=== PATIENT | female | born 1995 | race Caucasian/White ===

== ENCOUNTER 2018-09-24 11:53 | Inpatient (IN) | payer OTHER ==
[~2018-09-24] VITALS: Ht 154.9 cm; Wt 61.3 kg
[2018-09-24 12:06] VITALS: Ht 154.9 cm; Wt 61.3 kg
[2018-09-24 12:07] VITALS: BP 108/57
[2018-09-24] MEDS ORDERED: PREN1TAB71 PO (12:08)
--- NOTE | 2018-09-24 12:40 | PN ---
Triage Information Date/Time Reason for visit: Vag spotting / bleeding Weeks of Gestation 23-year-old 1 para 0 at 33 weeks and 3 days of gestation with estimated date of delivery November 09, 2018 Patient presents with chief complaint of vaginal bleeding for 2 days after intercourse Patient reports positive movement, denies any contractions or leaking fluid /Para 1 para 0 Diabetes: none Hypertention: none Objective Vital Signs Date Temp Pulse Resp B/P (MAP) Pulse Ox O2 O2 Flow FiO2 Time Delivery Rate 09/24/18 97.8 108/57 12:07 (74) Heart Rate: 140's Heart Rate Comments heart rate tracing category 1 Contractions: 6-10 Minutes Apart Results/Medications Results 24 hrs Urine Results - 72 Hrs Test 09/24/18 12:15 Urine Color YELLOW (YELLOW) Urine Clarity SLIGHTLY CLOUDY (CLEAR) Urine pH 6.0 (5.0-9.0) Urine Specific [place] 1.020 (1.003-1.030) Urine Ketones NEGATIVE mg/dL (NEGATIVE) Urine Nitrite NEGATIVE mg/dL (NEGATIVE) Urine Bilirubin NEGATIVE mg/dL (NEGATIVE) Urine Urobilinogen NEGATIVE mg/dL (NEGATIVE) Urine Leukocyte Esterase 2+ Rebeca/ul (NEGATIVE) H Urine Microscopic RBC 1 /HPF (0-5) Urine Microscopic WBC 3 /HPF (0-5) Urine Squamous Epithelial Cells FEW /HPF (FEW) Urine Bacteria FEW /HPF (NONE SEEN) A Urine Mucus FEW /HPF (NONE SEEN) A Urine Hemoglobin 2+ mg/dL (NEGATIVE) H Urine Glucose NEGATIVE mg/dL (NEGATIVE) Urine Total Protein NEGATIVE mg/dl (NEGATIVE) Imaging Results PROCEDURE: US OB biophysical profile. Ultrasound cervix CLINICAL INDICATION: decreased movements, bleeding TECHNIQUE: Multiple sonographic images of the pelvis were obtained. In addition, transvaginal images of the cervix were obtained. The images were reviewed on a PACS workstation. COMPARISON: No prior studies are available for comparison. FINDINGS: The cervix measures 2.3 cm in length. There is a single live intrauterine gestation. Cardiac activity is present with 164 beats per minute. There is a vertex presentation. The placenta is anterior. There is no evidence of placental abruption. There is a normal amount of amniotic fluid with an MARCOS = 11.4 cm. Biophysical profile: movement 2/2 tone 2/2. breathing 2/2 MARCOS 2/2 Total 8/8 RPTAT: AA . IMPRESSION: Normal biophysical profile. Cervix measures 2.3 cm in length. .Jasper Singh MD, MD Date Time Electronically viewed and signed by .Jasper Singh MD, on 09/24/2018 13:20 .S/ CC: YVONNE WADDELL MD [id number] Disposition: Admit Assessment/Plan Patient with shortened cervix measuring 2.3 cm with labor We will initiate betamethasone for lung maturity Urinalysis suggestive of UTI-we will start Macrobid Urine culture was sent Perinatology consultation YVONNE WADDELL MD Sep 24, 2018 12:40
[2018-09-24] MEDS ORDERED: BETAMET NA PHOS/AC(6 MG/ML) 2 ML INJ SYG IM ONE (14:00)
--- NOTE | 2018-09-24 14:04 | TRIAGE ---
OB Triage Datetime Report Generated by CPN: 09/24/2018 14:04 Datetime: 09/24/2018 13:47 Stage of : OB Triage Labor Evaluation Frequency: X1 Monitor Mode: External Duration (sec)2399: 60 Pattern: Normal: <= 5 Contractions in 10 Minutes Resting Tone [place]: Relaxed Heart Rate FHR Baseline Rate: 145 Monitor Mode: External US Variability: Moderate 6-25 bpm Accelerations: 15X15 Decelerations: None Category: Category I Pain Presence: None/Denies Pain Type: N/A Datetime: 09/24/2018 12:49 Labor Evaluation Frequency: 0 Monitor Mode: External Pattern: Normal: <= 5 Contractions in 10 Minutes Resting Tone [place]: Relaxed Heart Rate FHR Baseline Rate: 140 Monitor Mode: External US FHR Baseline Changes: No Baseline Change Variability: Moderate 6-25 bpm Accelerations: 15X15 Decelerations: None Category: Category I Datetime: 09/24/2018 12:44 Stage of : Antepartum Datetime: 09/24/2018 12:02 Stage of : OB Triage Assessment Type: Triage Maternal Assessment Level of Consciousness: Fully Conscious DTR's/Clonus: DTRs 2+; No Clonus Headache: Denies Blurred Vision: No Respiratory Effort: Unlabored; Regular Rhythm; Equal Expansion Breath Sounds, Left: Clear and Equal Breath Sounds, Right: Clear and Equal Nausea/Vomiting: Denies RUQ Epigastric Pain: Denies Lower Extremities Edema: None Degree: None Upper Extremities Edema: None Facial Edema: None Temperature Route: Oral Fall Risk Assessment History of Falling: (0) No Secondary Diagnosis: (0) No Ambulatory Aid: (0) Bedrest/Nurse Assist IV Therapy: (0) No Gait: (0) Normal/Bedrest/Immobile Mental Status: (0) Oriented to Own Ability Fall Score: 0 Fall Risk Score Definition: No Risk: No action required Monitor Mode: External Monitor Mode: External US Pain Assessment Pain Scale: 0 Datetime: 09/24/2018 11:59 Time of Arrival: 09/24/2018 11:50 EGA: 33.3 Arrived By: Ambulatory Arrived From: Dr. Rodas Chief Complaint: SENT FROM CLINIC C/O BLEEDING AFTER INTERVCOURSE Movement: Present Contractions: Denies/Absent Rupture of Membranes: Denies Vaginal Bleeding: None Vaginal Discharge: Denies Recent Sexual Intercouse: Yes Abdominal Trauma: Not Applicable Patient Complaints: Other Time Provider Notified: 09/24/2018 14:03 Provider Notified: DR. WADDELL Initial Plan: CATY, CALL
--- NOTE | 2018-09-24 14:09 | HP ---
Date/Time of Note Date/Time of Note DATE: 09/24/18 TIME: 14:07 OB - History Hx of Present Free Text/Dictation 23-year-old 1 para 0 at 33 weeks and 3 days of gestation with estimated date of delivery November 09, 2018 Patient presents with chief complaint of vaginal bleeding for 2 days after intercourse Patient reports positive movement, denies any contractions or leaking fluid Estimated Due Date: November 09, 2018 : 1 Para: 0 Care: Good Care Obstetrical Complications: None, Other (Short cervix measuring 2.3 cm) Medical Complications: None Past Family/Social History * Past Medical, Surgical, Family and Obstetric Histories reviewed from chart. OB Admission Exam Vital Signs Vital Signs Vital Signs Date Temp Pulse Resp B/P (MAP) Pulse Ox O2 O2 Flow FiO2 Time Delivery Rate 09/24/18 97.8 108/57 12:07 (74) Physical Exam HEENT: WNL Heart: Rhythm Normal Lungs: Clear, Equal Abdomen: WNL Extremities: Normal Reflexes: Normal Membranes: Intact Heart Rate: 140's Accelerations: Accelerations Present Decelerations: No Decelerations Varibility: Moderate Contractions on Admission: 6-10 Minutes Apart Intensity: Moderate Last 72 hours Lab Results Urine Results - 72 Hrs Test 09/24/18 12:15 Urine Color YELLOW (YELLOW) Urine Clarity SLIGHTLY CLOUDY (CLEAR) Urine pH 6.0 (5.0-9.0) Urine Specific [place] 1.020 (1.003-1.030) Urine Ketones NEGATIVE mg/dL (NEGATIVE) Urine Nitrite NEGATIVE mg/dL (NEGATIVE) Urine Bilirubin NEGATIVE mg/dL (NEGATIVE) Urine Urobilinogen NEGATIVE mg/dL (NEGATIVE) Urine Leukocyte Esterase 2+ Rebeca/ul (NEGATIVE) H Urine Microscopic RBC 1 /HPF (0-5) Urine Microscopic WBC 3 /HPF (0-5) Urine Squamous Epithelial Cells FEW /HPF (FEW) Urine Bacteria FEW /HPF (NONE SEEN) A Urine Mucus FEW /HPF (NONE SEEN) A Urine Hemoglobin 2+ mg/dL (NEGATIVE) H Urine Glucose NEGATIVE mg/dL (NEGATIVE) Urine Total Protein NEGATIVE mg/dl (NEGATIVE) PROCEDURE: US OB biophysical profile. Ultrasound cervix CLINICAL INDICATION: decreased movements, bleeding TECHNIQUE: Multiple sonographic images of the pelvis were obtained. In addition, transvaginal images of the cervix were obtained. The images were reviewed on a PACS workstation. COMPARISON: No prior studies are available for comparison. FINDINGS: The cervix measures 2.3 cm in length. There is a single live intrauterine gestation. Cardiac activity is present with 164 beats per minute. There is a vertex presentation. The placenta is anterior. There is no evidence of placental abruption. There is a normal amount of amniotic fluid with an MARCOS = 11.4 cm. Biophysical profile: movement 2/2 tone 2/2. breathing 2/2 MARCOS 2/2 Total 01/21 RPTAT: AA . IMPRESSION: Normal biophysical profile. Cervix measures 2.3 cm in length. .Jasper Singh MD, MD Date Time Electronically viewed and signed by .Jasper Singh MD, MD on 09/24/2018 13:20 .S/ CC: YVONNE WADDELL MD [id number] OB Assessment/Plan Reason for admission: labor Other plan: Admit to antepartum Betamethasone for lung maturity Macrobid for UTI Perinatology consultation Copies To: CC: ; YVONNE WADDELL MD Sep 24, 2018 14:09
[2018-09-24] MEDS ORDERED: CA GLUCONATE (GM) 10% 10ML INJ IV PRN (14:30)
[2018-09-24] MEDS ORDERED: MAGNESIUM SULFATE 4 GM/100 ML 100 ML IV SCH (14:30)
[2018-09-24] MEDS: LACTATED RINGER'S 1,000 ML IV SCH (15:20)
[2018-09-24] MEDS: MAGNESIUM SULFATE 20 GM/500 ML 500 ML IV SCH (15:34)
[2018-09-24] MEDS: BETAMET NA PHOS/AC(6 MG/ML) 2 ML INJ SYG IM SCH (16:23)
[2018-09-24] MEDS: NITROFURANTOIN (SR) 100 MG CAP PO SCH (22:02)
[2018-09-25] MEDS: LACTATED RINGER'S 1,000 ML IV SCH ×2 (01:50→13:36)
[2018-09-25] MEDS: MAGNESIUM SULFATE 20 GM/500 ML 500 ML IV SCH ×3 (01:53→23:56)
--- NOTE | 2018-09-25 07:34 | QN ---
Documentation Comment progress note patient was seen and evaluated no complaints no vaginal bleeding/ discharge vs stable afebrile ab soft nt gravid extremity no edema no calf tenderness ve no spotting/active bleeding fhr cat 1 toco occasional ctx a/ iup at 33 wks ga, threatened labor, short cervix, vaginal bleeding resolved, uti (receiving antibiotics) . currently on mg for tocolysis and steroid for lung maturity. p/ continue present managment f/u with perinatology consult DAVID MONGE MD Sep 25, 2018 07:34
[2018-09-25] MEDS: PRENATAL VITAMIN PO SCH (09:53)
[2018-09-25] MEDS: FERROUS SULFATE (EC) 325 MG TAB PO SCH (09:53)
[2018-09-25] MEDS: NITROFURANTOIN (SR) 100 MG CAP PO SCH (09:53)
[2018-09-25] MEDS ORDERED: ONDANSETRON 4 MG INJ IV PRN (12:00)
[2018-09-25] MEDS ORDERED: ACETAMINOPHEN 325 MG TAB PO PRN (12:30)
[2018-09-25] MEDS: BETAMET NA PHOS/AC(6 MG/ML) 2 ML INJ SYG IM SCH (15:56)
--- NOTE | 2018-09-25 18:34 | PREOPHP ---
DATE OF ADMISSION: 09/24/2018 HISTORY OF PRESENT ILLNESS: Ms. Lyudmila Whittington is a 23-year-old 3, para 2, EDC 09/14, intrauterine at 39 weeks' gestational age with a history of previous x2, admitted today for elective repeat delivery. She denies any contractions, vaginal bleeding or discharge. Her care took place with Dr. Laird. PAST MEDICAL HISTORY: Gallstones. MEDICATIONS: vitamins. PAST SURGICAL HISTORY: x2 previous section. History of abdominal hernia repair. OBSTETRIC HISTORY: x2 previous . GYNECOLOGIC HISTORY: 13, regular 3 to 4 days. Denies any sexually transmitted disease. Sexually ac tive with 1 partner. SOCIAL HISTORY: Denies any smoking, drugs or alcohol. FAMILY HISTORY: None. REVIEW OF SYSTEMS: All within normal except history of present illness. PHYSICAL EXAMINATION: HEENT: Within normal. LUNGS: CTA bilateral. CARDIOVASCULAR: S1, S2. Regular rate, rhythm. ABDOMEN: Gravid, nontender. Negative CVA bilateral. EXTREMITIES: Negative. No calf tenderness. PELVIC: Vaginal exam deferred. heart tracing category 1. [place]: Irregular contractions. ASSESSMENT: 1. Intrauterine at 39 weeks' gestational age. 2. Previous section x2. 3. Desires elective repeat delivery 4.. Declined vaginal after . PLAN: Consent for repeat delivery. Risks, benefits, alternatives were explained. All ques tions were answered. Dictated By: DAVID CASTRO/SONIA Conf#: [id number] DID#: [id number]
[2018-09-26] MEDS: LACTATED RINGER'S 1,000 ML IV SCH (02:28)
--- NOTE | 2018-09-26 05:16 | CONS ---
DATE OF ADMISSION: 09/24/2018 DATE OF CONSULTATION: 09/25/2018 TYPE OF CONSULTATION: Perinatology. HISTORY OF PRESENT ILLNESS: She is currently 33 weeks and 4 days and admitted with complaint of cont ractions. Cervical length of 2.3 cm on magnesium sulfate, currently received the first dose of betam ethasone on 09/24/2018 at 4:23 and to receive the second dose on 09/25/2018. I was notified by the nurse, Destiny, in the afternoon around 2:00 that patient has increased pain. S he was given Tylenol and I asked her if that is okay with Dr. Monge. Cervical exam should be don e. Cervical exam showed her to be closed and after Tylenol, she felt best. RECOMMENDATIONS: My recommendation is to continue with the magnesium until tomorrow morning then dis continue. If there is no change in cervical length and the patient is comfortable, consider discharg e home with labor precautions. Also she had a urine culture done. Apparently today, the uri ne culture growth is negative x1. Please do check. As I said before in addition, please do remember to check urine culture growth by tomorrow before the patient goes home and if the urine culture grow th is negative, stop the Macrobid. Dictated By: YOHANA CHOI MD ST/NTS Conf#: [id number] DID#: [id number] CC: DAVID MONGE MD;*EndCC*
[2018-09-26] MEDS: MAGNESIUM SULFATE 20 GM/500 ML 500 ML IV SCH ×2 (06:20→10:37)
[2018-09-26] MEDS: PRENATAL VITAMIN PO SCH (09:22)
[2018-09-26] MEDS: FERROUS SULFATE (EC) 325 MG TAB PO SCH (09:22)
== END 2018-09-26 17:35 | disposition home or self-care (01) | DRG 832 ==
LOC: OBT 11:53 → L-D 11:53 → OBT 14:28 → PP1 09-25 06:13
PROVIDERS: ADMIT Obstetrics & Gynecology; ATTEND Obstetrics & Gynecology
DX: O47.03 False labor before 37 completed weeks of gestation, third trimester (principal); O26.873 Cervical shortening, third trimester; Z3A.33 33 weeks gestation of pregnancy
CPT/HCPCS: 76817; 76818; 80053; 81001; 83735; 85025; 87086; G0463; J0702; J2405; J3475; J7120

== ENCOUNTER 2018-10-28 16:15 | Inpatient (IN) | payer OTHER ==
[~2018-10-28] VITALS: Ht 154.9 cm; Wt 72.4 kg
[~2018-10-28 16:15] MED LIST: PREN1TAB71 PO
[2018-10-28 16:27] VITALS: BP 108/58; PULSE 69; RESP 18; Ht 154.9 cm; Wt 72.4 kg
[2018-10-28] MEDS ORDERED: LIDOCAINE 1% (MPF) 30 ML INJ INJ PRN (20:30)
[2018-10-28] MEDS ORDERED: OXYTOCIN 30 UNITS/LR 500 ML IV SCH ×2 (20:30)
[2018-10-28] MEDS ORDERED: IBUPROFEN 600 MG TAB PO PRN (20:30)
[2018-10-28] MEDS ORDERED: BUTORPHANOL 2 MG INJ IV PRN (20:30)
[2018-10-28] MEDS ORDERED: METHYLERGONOVINE 0.2 MG INJ IM PRN (20:30)
[2018-10-28] MEDS ORDERED: MISOPROSTOL 200 MCG TAB PR PRN (20:30)
[2018-10-28] MEDS ORDERED: LACTATED RINGER'S 1,000 ML IV ONE (20:30)
[2018-10-28] MEDS ORDERED: CEFAZOLIN 2 GM/50 ML (PMX) 50 ML IVPB ONE (20:30)
[2018-10-28] MEDS ORDERED: OXYTOCIN 30 UNITS/LR 500 ML IV PRN (20:30)
[2018-10-28] MEDS ORDERED: CARBOPROST 250 MCG INJ IM PRN (20:30)
[2018-10-28 21:26] VITALS: BP 109/62; PULSE 18; RESP 18
[2018-10-28] MEDS: LACTATED RINGER'S 1,000 ML IV SCH (23:00)
--- NOTE | 2018-10-28 23:28 | HP ---
Date/Time of Note Date/Time of Note DATE: 10/28/18 TIME: 23:21 OB - History Hx of Present Free Text/Dictation October 28, 2018 Care: None Other Concerns: 23-year-old female with IUP at 38 weeks and 2 days with care with Dr. Nestor Raza resents the hospital with complaint of decreased movement for the last 2 days. Patient also was feeling some contractions and suprapubic pain. She denies any vaginal bleeding. She reports that she felt she passed a bloody show. She had good care. Records are available. Patient's due date is by 12 weeks ultrasound which reported to be November 09, 2018. Past Family/Social History * Past Medical, Surgical, Family and Obstetric Histories reviewed from chart. OB Admission Exam Vital Signs Vital Signs Vital Signs Date Temp Pulse Resp B/P (MAP) Pulse Ox O2 O2 Flow FiO2 Time Delivery Rate 10/28/18 98.0 18 18 109/62 Room Air 21:26 (78) Physical Exam HEENT: WNL Lungs: Clear Abdomen: WNL Reflexes: Normal Cervical Dilatation: 2cm Effacement: 50% Station: -2 Membranes: Intact Heart Rate: 130's Accelerations: Accelerations Present Intensity: Moderate Last 72 hours Lab Results CBC & BMP 10/28/18 21:15 OB Assessment/Plan Other Assessment: IUP at 38 weeks and 2 days Estimated weights requested by primary OB and reported to be a lag of 3 weeks. Cannot rule out IUGR Patient has a good dates by 12 weeks ultrasound. It appears that her due date is her best to date by first trimester ultrasound. Possible early labor I have discussed this case with perinatologist on-call Dr. Membreno, does not recommend any steroid since the patient has a reliable date She might be in early labor. We will continue to monitor closely If she is still consider perinatology consultation tomorrow, rule out IUGR, if needed Doppler of umbilical artery Plan of care discussed with the patient and with RN Lower abdominal pain, contractions, urine analysis consistent with UTI, Start antibiotics. We will give the patient 1 dose of IV Ancef with continue with p.o. Keflex, complete course of treatment for 7 days Plan of care discussed with the patient and with JESE LUCAS MD October 28, 2018 23:28
[2018-10-29] MEDS: CEPHALEXIN 500 MG CAP PO SCH ×4 (00:02→19:02)
--- NOTE | 2018-10-29 02:24 | TRIAGE ---
OB Triage Datetime Report Generated by CPN: 10/29/2018 02:23 Datetime: 10/29/2018 01:00 Labor Evaluation Frequency: 2-4 Monitor Mode: External Duration (sec)2399: 50-100 Quality: Mild Pattern: Normal: <= 5 Contractions in 10 Minutes Resting Tone [place]: Relaxed Interventions: Side to Side Heart Rate FHR Baseline Rate: 145 Monitor Mode: External US Variability: Moderate 6-25 bpm Accelerations: 15X15 Decelerations: Variable Category: Category II Comments: VARIABLE X1 NOTED Pain Assessment Pain Scale: 9 Pain Presence: Intermittent Pain Type: Contraction Pain Location: Abdomen; Back Pain Relief Measures: Comfort Measures Datetime: 10/29/2018 00:39 Monitor Mode: External US Datetime: 10/29/2018 00:00 Labor Evaluation Frequency: 2-3.5 Monitor Mode: External Duration (sec)2399: 60-110 Quality: Mild Pattern: Normal: <= 5 Contractions in 10 Minutes Resting Tone [place]: Relaxed Heart Rate FHR Baseline Rate: 145 Monitor Mode: External US Variability: Moderate 6-25 bpm Accelerations: 15X15 Decelerations: None Category: Category I Pain Assessment Pain Scale: 9 Pain Presence: Intermittent Pain Type: Contraction Pain Location: Abdomen; Back Datetime: 10/28/2018 23:42 Vaginal Exam Dilatation (cms): 3.0 Effacement (%): 60 Station: -2 Exam By: CORWIN RN Membrane Status: Intact Vaginal Bleeding: Normal Show Cervix, Consistency: Moderate Cervix, Position: Midposition Presentation 'A': Cephalic Datetime: 10/28/2018 23:00 Labor Evaluation Frequency: 2-3 Monitor Mode: External Quality: Mild Pattern: Normal: <= 5 Contractions in 10 Minutes Resting Tone [place]: Relaxed Heart Rate FHR Baseline Rate: 140 Monitor Mode: External US Variability: Moderate 6-25 bpm Accelerations: 15X15 Decelerations: None Category: Category I Comments: CHANGE FROM 135BPM BASELINE Pain Assessment Pain Scale: 9 Pain Presence: Intermittent Pain Type: Contraction Pain Location: Abdomen; Back Pain Relief Measures: Comfort Measures Datetime: 10/28/2018 22:40 Monitor Mode: External Datetime: 10/28/2018 22:00 Labor Evaluation Frequency: 2-3.5 Monitor Mode: External Duration (sec)2399: 40-70 Quality: Mild Pattern: Normal: <= 5 Contractions in 10 Minutes Resting Tone [place]: Relaxed Heart Rate FHR Baseline Rate: 135 Monitor Mode: External US Variability: Moderate 6-25 bpm Accelerations: 15X15 Decelerations: None Category: Category I Pain Assessment Pain Scale: 9 Pain Presence: Intermittent Pain Type: Contraction Pain Location: Abdomen; Back Pain Relief Measures: Comfort Measures Datetime: 10/28/2018 21:35 Maternal Assessment Level of Consciousness: Fully Conscious DTR's/Clonus: DTRs 2+; No Clonus Headache: Denies Blurred Vision: No Respiratory Effort: Unlabored; Regular Rhythm; Equal Expansion Breath Sounds, Left: Clear and Equal Breath Sounds, Right: Clear and Equal Nausea/Vomiting: Denies RUQ Epigastric Pain: Denies Lower Extremities Edema: None Degree: None Upper Extremities Edema: None Degree: None Facial Edema: None Fall Risk Assessment History of Falling: (0) No Secondary Diagnosis: (0) No Ambulatory Aid: (0) Bedrest/Nurse Assist IV Therapy: (20) Yes Gait: (0) Normal/Bedrest/Immobile Mental Status: (0) Oriented to Own Ability Fall Score: 20 Fall Risk Score Definition: No Risk: No action required Datetime: 10/28/2018 21:33 Time of Arrival: 10/28/2018 21:00 EGA: 38.2 Arrived By: Ambulatory Arrived From: triage Datetime: 10/28/2018 21:26 Temperature Route: Oral Pain Assessment Pain Scale: 9 Pain Presence: Intermittent Pain Type: Contraction Pain Location: Abdomen; Back Pain Relief Measures: Comfort Measures Datetime: 10/28/2018 21:00 Stage of : Labor Comments: monitor on, pt in LR 12 Datetime: 10/28/2018 18:47 Vaginal Exam Dilatation (cms): 2.0 Effacement (%): 60 Station: -2 Exam By: EMETERIO Vaginal Bleeding: None Cervix, Consistency: Moderate Cervix, Position: Midposition Presentation 'A': Cephalic Datetime: 10/28/2018 18:30 Stage of : OB Triage Maternal Assessment Level of Consciousness: Fully Conscious Labor Evaluation Frequency: 1UC/HR Monitor Mode: External Duration (sec)2399: 70 Quality: Moderate Resting Tone [place]: Relaxed Heart Rate FHR Baseline Rate: 135 Monitor Mode: External US Variability: Moderate 6-25 bpm Accelerations: 15X15 Decelerations: None Category: Category I Pain Assessment Pain Scale: 5 Pain Presence: Intermittent Pain Type: Cramping Pain Location: Abdomen Pain Goal: 3 Membrane Status: Intact Vaginal Bleeding: None Datetime: 10/28/2018 17:30 Stage of : OB Triage Maternal Assessment Level of Consciousness: Fully Conscious Labor Evaluation Frequency: 6UC/HR Monitor Mode: External Duration (sec)2399: 40-80 Quality: Moderate Resting Tone [place]: Relaxed Heart Rate FHR Baseline Rate: 135 Monitor Mode: External US Variability: Moderate 6-25 bpm Accelerations: 15X15 Decelerations: None Category: Category I Pain Assessment Pain Scale: 5 Pain Presence: Intermittent Pain Type: Cramping Pain Location: Abdomen Pain Goal: 3 Membrane Status: Intact Vaginal Bleeding: None Datetime: 10/28/2018 16:24 Assessment Type: Triage Maternal Assessment Level of Consciousness: Fully Conscious DTR's/Clonus: DTRs 2+; No Clonus Headache: Denies Blurred Vision: No Respiratory Effort: Unlabored; Regular Rhythm; Equal Expansion Breath Sounds, Left: Clear and Equal Breath Sounds, Right: Clear and Equal Nausea/Vomiting: Denies RUQ Epigastric Pain: Denies Lower Extremities Edema: None Degree: None Upper Extremities Edema: None Degree: None Facial Edema: None Fall Risk Assessment History of Falling: (0) No Secondary Diagnosis: (0) No Ambulatory Aid: (0) Bedrest/Nurse Assist IV Therapy: (0) No Gait: (0) Normal/Bedrest/Immobile Mental Status: (0) Oriented to Own Ability Fall Score: 0 Fall Risk Score Definition: No Risk: No action required Datetime: 10/28/2018 16:23 Time of Arrival: 10/28/2018 16:09 EGA: 38.2 Arrived By: Ambulatory Arrived From: Home Chief Complaint: pt. here C/O NO FM SINCE FRIDAY Movement: Absent Contractions: Irregular Rupture of Membranes: Denies Vaginal Bleeding: None Vaginal Discharge: Present Recent Sexual Intercouse: Denies Abdominal Trauma: Not Applicable Patient Complaints: Contractions; Cramping; Back Pain Time Provider Notified: 10/28/2018 18:59 Provider Notified: ESHAGHIAN Initial Plan: EFM Datetime: 10/28/2018 16:21 Monitor Mode: External Monitor Mode: External US Datetime: 09/26/2018 16:07 Maternal Assessment Level of Consciousness: Fully Conscious DTR's/Clonus: DTRs 2+ Headache: Denies Blurred Vision: No Nausea/Vomiting: Denies RUQ Epigastric Pain: Denies Facial Edema: None Labor Evaluation Frequency: NONE Pattern: Normal: <= 5 Contractions in 10 Minutes Resting Tone [place]: Relaxed Heart Rate FHR Baseline Rate: 140 Monitor Mode: External US FHR Baseline Changes: No Baseline Change Variability: Moderate 6-25 bpm Accelerations: 15X15 Decelerations: None Category: Category I Pain Assessment Pain Scale: 0 Pain Presence: None/Denies Pain Type: N/A Pain Goal: 0 Membrane Status: Intact Datetime: 09/26/2018 15:30 Maternal Assessment Level of Consciousness: Fully Conscious DTR's/Clonus: DTRs 2+ Headache: Denies Blurred Vision: No Nausea/Vomiting: Denies RUQ Epigastric Pain: Denies Facial Edema: None Labor Evaluation Frequency: NONE Pattern: Normal: <= 5 Contractions in 10 Minutes Resting Tone [place]: Relaxed Heart Rate FHR Baseline Rate: 130 Monitor Mode: External US FHR Baseline Changes: No Baseline Change Variability: Moderate 6-25 bpm Accelerations: 15X15 Decelerations: None Category: Category I Membrane Status: Intact Datetime: 09/26/2018 14:55 Maternal Assessment Level of Consciousness: Fully Conscious DTR's/Clonus: DTRs 2+ Headache: Denies Blurred Vision: No Nausea/Vomiting: Denies RUQ Epigastric Pain: Denies Facial Edema: None Labor Evaluation Frequency: NONE Pattern: Normal: <= 5 Contractions in 10 Minutes Resting Tone [place]: Relaxed Heart Rate FHR Baseline Rate: 135 Monitor Mode: External US FHR Baseline Changes: No Baseline Change Variability: Moderate 6-25 bpm Accelerations: 15X15 Decelerations: None Category: Category I Pain Assessment Pain Scale: 0 Pain Presence: None/Denies Pain Goal: 0 Membrane Status: Intact Datetime: 09/26/2018 11:58 Maternal Assessment Level of Consciousness: Fully Conscious DTR's/Clonus: DTRs 2+ Headache: Denies Blurred Vision: No Nausea/Vomiting: Denies RUQ Epigastric Pain: Denies Facial Edema: None Labor Evaluation Frequency: NONE Pattern: Normal: <= 5 Contractions in 10 Minutes Resting Tone [place]: Relaxed Heart Rate FHR Baseline Rate: 125 Monitor Mode: External US FHR Baseline Changes: No Baseline Change Variability: Moderate 6-25 bpm Accelerations: 15X15 Decelerations: None Category: Category I Pain Assessment Pain Scale: 0 Pain Presence: None/Denies Pain Goal: 0 Membrane Status: Intact Datetime: 09/26/2018 11:38 Maternal Assessment Level of Consciousness: Fully Conscious DTR's/Clonus: DTRs 2+ Headache: Denies Blurred Vision: No Nausea/Vomiting: Denies RUQ Epigastric Pain: Denies Facial Edema: None Labor Evaluation Frequency: NONE Pattern: Normal: <= 5 Contractions in 10 Minutes Resting Tone [place]: Relaxed Heart Rate FHR Baseline Rate: 120 Monitor Mode: External US FHR Baseline Changes: No Baseline Change Variability: Moderate 6-25 bpm Accelerations: 15X15 Decelerations: None Category: Category I Pain Assessment Pain Scale: 0 Pain Presence: None/Denies Pain Type: N/A Pain Goal: 0 Membrane Status: Intact Datetime: 09/26/2018 11:01 Maternal Assessment Level of Consciousness: Fully Conscious DTR's/Clonus: DTRs 2+ Headache: Denies Blurred Vision: No Nausea/Vomiting: Denies RUQ Epigastric Pain: Denies Facial Edema: None Labor Evaluation Frequency: NONE Pattern: Normal: <= 5 Contractions in 10 Minutes Resting Tone [place]: Relaxed Heart Rate FHR Baseline Rate: 125 Monitor Mode: External US FHR Baseline Changes: No Baseline Change Variability: Moderate 6-25 bpm Accelerations: 15X15 Decelerations: None Category: Category I Pain Assessment Pain Scale: 0 Pain Presence: None/Denies Pain Type: N/A Pain Goal: 0 Membrane Status: Intact Datetime: 09/26/2018 10:08 Maternal Assessment Level of Consciousness: Fully Conscious DTR's/Clonus: DTRs 2+ Headache: Denies Blurred Vision: No Nausea/Vomiting: Denies RUQ Epigastric Pain: Denies Facial Edema: None Labor Evaluation Frequency: NONE Pattern: Normal: <= 5 Contractions in 10 Minutes Resting Tone [place]: Relaxed Heart Rate FHR Baseline Rate: 120 Monitor Mode: External US FHR Baseline Changes: No Baseline Change Variability: Moderate 6-25 bpm Accelerations: 15X15 Decelerations: None Category: Category I Pain Assessment Pain Scale: 0 Pain Presence: None/Denies Pain Goal: 0 Membrane Status: Intact Datetime: 09/26/2018 09:05 Maternal Assessment Level of Consciousness: Fully Conscious DTR's/Clonus: DTRs 2+ Headache: Denies Blurred Vision: No Nausea/Vomiting: Denies RUQ Epigastric Pain: Denies Facial Edema: None Labor Evaluation Frequency: NONE Pattern: Normal: <= 5 Contractions in 10 Minutes Resting Tone [place]: Relaxed Heart Rate FHR Baseline Rate: 130 Monitor Mode: External US FHR Baseline Changes: No Baseline Change Variability: Moderate 6-25 bpm Accelerations: 15X15 Decelerations: None Category: Category I Pain Assessment Pain Scale: 0 Pain Presence: None/Denies Pain Type: N/A Pain Goal: 0 Membrane Status: Intact Datetime: 09/26/2018 08:00 Maternal Assessment Level of Consciousness: Fully Conscious DTR's/Clonus: DTRs 2+; No Clonus Headache: Denies Blurred Vision: No Respiratory Effort: Unlabored; Regular Rhythm; Equal Expansion Breath Sounds, Left: Clear and Equal Breath Sounds, Right: Clear and Equal Nausea/Vomiting: Denies RUQ Epigastric Pain: Denies Facial Edema: None Fall Risk Assessment History of Falling: (0) No Secondary Diagnosis: (0) No Ambulatory Aid: (0) Bedrest/Nurse Assist Gait: (0) Normal/Bedrest/Immobile Mental Status: (0) Oriented to Own Ability Datetime: 09/26/2018 07:50 Maternal Assessment Level of Consciousness: Fully Conscious DTR's/Clonus: DTRs 2+ Headache: Denies Blurred Vision: No Nausea/Vomiting: Denies RUQ Epigastric Pain: Denies Facial Edema: None Labor Evaluation Frequency: NONE Pattern: Normal: <= 5 Contractions in 10 Minutes Resting Tone [place]: Relaxed Heart Rate FHR Baseline Rate: 115 Monitor Mode: External US FHR Baseline Changes: No Baseline Change Variability: Moderate 6-25 bpm Accelerations: 15X15 Decelerations: None Category: Category I Pain Assessment Pain Scale: 0 Pain Presence: None/Denies Pain Type: N/A Pain Location: Abdomen Pain Goal: 0 Membrane Status: Intact Datetime: 09/26/2018 07:20 Stage of : Antepartum Datetime: 09/26/2018 07:00 Labor Evaluation Frequency: NONE Monitor Mode: External Resting Tone [place]: Relaxed Heart Rate FHR Baseline Rate: 120 Monitor Mode: External US Variability: Moderate 6-25 bpm Accelerations: 15X15 Decelerations: None Category: Category I Pain Presence: None/Denies Pain Type: N/A Datetime: 09/26/2018 06:00 DTR's/Clonus: DTRs 2+; No Clonus Labor Evaluation Frequency: NONE Monitor Mode: External Resting Tone [place]: Relaxed Heart Rate FHR Baseline Rate: 115 Monitor Mode: External US Variability: Moderate 6-25 bpm Accelerations: 15X15 Decelerations: None Category: Category I Pain Presence: None/Denies Pain Type: N/A Pain Assessment Comments: PT SLEEPING WITH EVEN UNLABORED BREATHING Datetime: 09/26/2018 05:00 Labor Evaluation Frequency: NONE Monitor Mode: External Resting Tone [place]: Relaxed Heart Rate FHR Baseline Rate: 120 Monitor Mode: External US Variability: Moderate 6-25 bpm Accelerations: 15X15 Decelerations: None Category: Category I Pain Presence: None/Denies Pain Type: N/A Datetime: 09/26/2018 04:00 Maternal Assessment Level of Consciousness: Fully Conscious DTR's/Clonus: DTRs 2+; No Clonus Breath Sounds, Left: Clear and Equal Breath Sounds, Right: Clear and Equal Labor Evaluation Frequency: NONE Monitor Mode: External Resting Tone [place]: Relaxed Heart Rate FHR Baseline Rate: 120 Monitor Mode: External US Variability: Moderate 6-25 bpm Accelerations: 15X15 Decelerations: None Category: Category I Pain Presence: None/Denies Pain Type: N/A Datetime: 09/26/2018 03:00 Monitor Mode: External Resting Tone [place]: Relaxed Heart Rate FHR Baseline Rate: 120 Monitor Mode: External US Variability: Moderate 6-25 bpm Accelerations: 15X15 Decelerations: None Category: Category I Pain Presence: None/Denies Pain Type: N/A Pain Assessment Comments: PT SLEEPING BUT EASILY AROUSED Datetime: 09/26/2018 02:14 Monitor Mode: External US Datetime: 09/26/2018 02:00 DTR's/Clonus: DTRs 2+; No Clonus Labor Evaluation Frequency: NONE Monitor Mode: External Resting Tone [place]: Relaxed Heart Rate FHR Baseline Rate: 115 Monitor Mode: External US Variability: Moderate 6-25 bpm Accelerations: 15X15 Decelerations: None Category: Category I Pain Presence: None/Denies Pain Type: N/A Datetime: 09/26/2018 01:00 Labor Evaluation Frequency: NONE Monitor Mode: External Resting Tone [place]: Relaxed Heart Rate FHR Baseline Rate: 120 Monitor Mode: External US Variability: Moderate 6-25 bpm Accelerations: None Decelerations: None Category: Category I Pain Presence: None/Denies Pain Type: N/A Datetime: 09/26/2018 00:51 Monitor Mode: External US Datetime: 09/26/2018 00:00 Maternal Assessment Level of Consciousness: Fully Conscious DTR's/Clonus: DTRs 2+; No Clonus Breath Sounds, Left: Clear and Equal Breath Sounds, Right: Clear and Equal Labor Evaluation Frequency: NONE Monitor Mode: External Resting Tone [place]: Relaxed Heart Rate FHR Baseline Rate: 120 Monitor Mode: External US Variability: Moderate 6-25 bpm Accelerations: 15X15 Decelerations: None Category: Category I Pain Presence: None/Denies Pain Type: N/A Datetime: 09/25/2018 23:00 Labor Evaluation Frequency: x1 Monitor Mode: External Duration (sec)2399: 80 Quality: Mild Resting Tone [place]: Relaxed Heart Rate FHR Baseline Rate: 120 Monitor Mode: External US Variability: Moderate 6-25 bpm Accelerations: 15X15 Decelerations: None Category: Category I Pain Presence: None/Denies Pain Type: N/A Datetime: 09/25/2018 22:00 DTR's/Clonus: DTRs 2+; No Clonus Labor Evaluation Frequency: x1 Monitor Mode: External Duration (sec)2399: 70 Quality: Mild Resting Tone [place]: Relaxed Heart Rate FHR Baseline Rate: 120 Monitor Mode: External US Variability: Moderate 6-25 bpm Accelerations: 15X15 Decelerations: None Category: Category I Pain Presence: None/Denies Pain Type: N/A Datetime: 09/25/2018 21:00 Resting Tone [place]: Relaxed Heart Rate FHR Baseline Rate: 120 Monitor Mode: External US Variability: Moderate 6-25 bpm Accelerations: 15X15 Decelerations: None Category: Category I Pain Presence: None/Denies Pain Type: N/A Datetime: 09/25/2018 20:05 Stage of : Antepartum Assessment Type: Ongoing Assessment Maternal Assessment Level of Consciousness: Fully Conscious DTR's/Clonus: DTRs 2+; No Clonus Headache: Denies Blurred Vision: No Respiratory Effort: Unlabored; Regular Rhythm; Equal Expansion Breath Sounds, Left: Clear and Equal Breath Sounds, Right: Clear and Equal Nausea/Vomiting: Denies RUQ Epigastric Pain: Denies Lower Extremities Edema: None Degree: None Upper Extremities Edema: None Degree: None Facial Edema: None Temperature Route: Oral Fall Risk Assessment History of Falling: (0) No Secondary Diagnosis: (0) No Ambulatory Aid: (0) Bedrest/Nurse Assist IV Therapy: (0) No Gait: (0) Normal/Bedrest/Immobile Mental Status: (0) Oriented to Own Ability Fall Score: 0 Fall Risk Score Definition: No Risk: No action required Monitor Mode: External Contraction Comments: PT DENIES CRAMPING Comments: PT STATES + FM Pain Presence: None/Denies Pain Type: N/A Membrane Status: Intact Vaginal Bleeding: None Datetime: 09/25/2018 19:59 Labor Evaluation Frequency: X1 Monitor Mode: External Duration (sec)2399: 60 Quality: Mild Resting Tone [place]: Relaxed Heart Rate FHR Baseline Rate: 120 Monitor Mode: External US Variability: Moderate 6-25 bpm Accelerations: 15X15 Decelerations: None Category: Category I Pain Presence: None/Denies Pain Type: N/A Datetime: 09/25/2018 19:28 Monitor Mode: External US Datetime: 09/25/2018 18:13 Labor Evaluation Frequency: 0 Monitor Mode: External Resting Tone [place]: Relaxed Heart Rate FHR Baseline Rate: 130 FHR Baseline Changes: No Baseline Change Variability: Moderate 6-25 bpm Accelerations: 15X15 Decelerations: None Category: Category I Datetime: 09/25/2018 17:12 Heart Rate FHR Baseline Rate: 120 Monitor Mode: External US FHR Baseline Changes: No Baseline Change Variability: Moderate 6-25 bpm Accelerations: None Decelerations: None Category: Category I Datetime: 09/25/2018 15:11 Contraction Comments: pt states she does not feel pain or cramping. Datetime: 09/25/2018 13:59 Maternal Assessment Level of Consciousness: Fully Conscious DTR's/Clonus: DTRs 2+ Headache: Denies Blurred Vision: No Respiratory Effort: Unlabored Breath Sounds, Left: Clear and Equal Breath Sounds, Right: Clear and Equal Nausea/Vomiting: Denies RUQ Epigastric Pain: Denies Facial Edema: None Labor Evaluation Frequency: 1 Monitor Mode: External Duration (sec)2399: 60 Quality: Mild Resting Tone [place]: Relaxed Heart Rate FHR Baseline Rate: 120 Monitor Mode: External US FHR Baseline Changes: No Baseline Change Variability: Moderate 6-25 bpm Accelerations: 15X15 Decelerations: None Category: Category I Datetime: 09/25/2018 12:59 Vaginal Exam Dilatation (cms): 0.0 Effacement (%): 0 Station: -3 Exam By: dg rn Vaginal Bleeding: None Cervix, Consistency: Soft Cervix, Position: Posterior Datetime: 09/25/2018 12:38 Labor Evaluation Frequency: irritability Monitor Mode: External Quality: Mild Resting Tone [place]: Relaxed Heart Rate FHR Baseline Rate: 130 Monitor Mode: External US FHR Baseline Changes: No Baseline Change Variability: Moderate 6-25 bpm Accelerations: 15X15 Decelerations: None Category: Category I Pain Assessment Pain Scale: 8 Pain Type: Cramping Pain Goal: 0 Datetime: 09/25/2018 12:04 Pain Assessment Pain Scale: 8 Pain Presence: Constant Pain Type: Cramping Pain Goal: 0 Pain Assessment Comments: suprapubic area pain, urine culture is negative Datetime: 09/25/2018 11:37 Labor Evaluation Frequency: 0 Monitor Mode: External Resting Tone [place]: Relaxed Heart Rate FHR Baseline Rate: 130 Monitor Mode: External US FHR Baseline Changes: No Baseline Change Variability: Moderate 6-25 bpm Accelerations: 15X15 Decelerations: None Category: Category I Datetime: 09/25/2018 09:56 Labor Evaluation Frequency: 0 Monitor Mode: External Resting Tone [place]: Relaxed Heart Rate FHR Baseline Rate: 130 Monitor Mode: External US FHR Baseline Changes: No Baseline Change Variability: Moderate 6-25 bpm Accelerations: 15X15 Decelerations: None Category: Category I Datetime: 09/25/2018 08:44 Pain Assessment Pain Scale: 7 Pain Presence: Constant Pain Location: Abdomen Pain Goal: 0 Pain Assessment Comments: across pubic bone Datetime: 09/25/2018 08:43 Assessment Type: Ongoing Assessment Maternal Assessment Level of Consciousness: Fully Conscious DTR's/Clonus: DTRs 2+; No Clonus Headache: Denies Blurred Vision: No Respiratory Effort: Unlabored; Regular Rhythm; Equal Expansion Breath Sounds, Left: Clear and Equal Breath Sounds, Right: Clear and Equal Nausea/Vomiting: Denies RUQ Epigastric Pain: Denies Facial Edema: None Fall Risk Assessment History of Falling: (0) No Secondary Diagnosis: (0) No Ambulatory Aid: (0) Bedrest/Nurse Assist IV Therapy: (20) Yes Gait: (0) Normal/Bedrest/Immobile Mental Status: (0) Oriented to Own Ability Fall Score: 20 Fall Risk Score Definition: No Risk: No action required Datetime: 09/25/2018 08:39 Contraction Comments: to lower abd Datetime: 09/25/2018 07:50 Labor Evaluation Frequency: 0 Monitor Mode: External Resting Tone [place]: Relaxed Heart Rate FHR Baseline Rate: 130 Monitor Mode: External US FHR Baseline Changes: No Baseline Change Variability: Moderate 6-25 bpm Accelerations: 15X15 Decelerations: None Category: Category I Datetime: 09/25/2018 07:10 Stage of : Antepartum Datetime: 09/25/2018 07:00 Labor Evaluation Frequency: X1 Monitor Mode: External Duration (sec)2399: 60 Quality: Mild Resting Tone [place]: Relaxed Heart Rate FHR Baseline Rate: 120 Monitor Mode: External US Variability: Moderate 6-25 bpm Accelerations: 15X15 Decelerations: None Category: Category I Pain Presence: None/Denies Pain Type: N/A Datetime: 09/25/2018 06:14 Stage of : Antepartum Pain Presence: None/Denies Pain Type: N/A Pain Assessment Comments: PT DENIES Membrane Status: Intact Vaginal Bleeding: None Datetime: 09/25/2018 05:53 Stage of : Antepartum Labor Evaluation Frequency: x1 Monitor Mode: External Duration (sec)2399: 60 Pattern: Normal: <= 5 Contractions in 10 Minutes Resting Tone [place]: Relaxed Heart Rate FHR Baseline Rate: 120 Monitor Mode: External US Variability: Moderate 6-25 bpm Accelerations: 15X15 Decelerations: None Category: Category I Datetime: 09/25/2018 04:58 Stage of : Antepartum Labor Evaluation Frequency: X1 Monitor Mode: External Duration (sec)2399: 70 Pattern: Normal: <= 5 Contractions in 10 Minutes Resting Tone [place]: Relaxed Heart Rate FHR Baseline Rate: 115 Monitor Mode: External US Variability: Moderate 6-25 bpm Accelerations: 15X15 Decelerations: None Category: Category I Datetime: 09/25/2018 04:20 Maternal Assessment Level of Consciousness: Fully Conscious DTR's/Clonus: DTRs 2+; No Clonus Headache: Denies Breath Sounds, Left: Clear and Equal Breath Sounds, Right: Clear and Equal Nausea/Vomiting: Denies RUQ Epigastric Pain: Denies Datetime: 09/25/2018 04:00 Stage of : Antepartum Labor Evaluation Frequency: x0 Monitor Mode: External Duration (sec)2399: x0 Pattern: Normal: <= 5 Contractions in 10 Minutes Resting Tone [place]: Relaxed Heart Rate FHR Baseline Rate: 120 Monitor Mode: External US Variability: Moderate 6-25 bpm Accelerations: 15X15 Decelerations: None Category: Category I Datetime: 09/25/2018 03:00 Stage of : Antepartum Labor Evaluation Frequency: X0 Monitor Mode: External Duration (sec)2399: X0 Pattern: Normal: <= 5 Contractions in 10 Minutes Resting Tone [place]: Relaxed Heart Rate FHR Baseline Rate: 115 Monitor Mode: External US Variability: Moderate 6-25 bpm Accelerations: 15X15 Decelerations: None Category: Category I Datetime: 09/25/2018 02:00 Stage of : Antepartum Maternal Assessment Level of Consciousness: Fully Conscious DTR's/Clonus: DTRs 2+; No Clonus Headache: Denies Breath Sounds, Left: Clear and Equal Breath Sounds, Right: Clear and Equal Nausea/Vomiting: Denies RUQ Epigastric Pain: Denies Labor Evaluation Frequency: X0 Monitor Mode: External Duration (sec)2399: X0 Pattern: Normal: <= 5 Contractions in 10 Minutes Resting Tone [place]: Relaxed Heart Rate FHR Baseline Rate: 120 Monitor Mode: External US Variability: Moderate 6-25 bpm Accelerations: 15X15 Decelerations: None Category: Category I Pain Assessment Pain Scale: 0 Pain Presence: None/Denies Pain Type: N/A Datetime: 09/25/2018 01:00 Stage of : Antepartum Labor Evaluation Frequency: X1 Monitor Mode: External Duration (sec)2399: 60 Quality: Mild Pattern: Normal: <= 5 Contractions in 10 Minutes Resting Tone [place]: Relaxed Heart Rate FHR Baseline Rate: 120 Monitor Mode: External US Variability: Moderate 6-25 bpm Accelerations: 15X15 Decelerations: None Category: Category I Datetime: 09/25/2018 00:00 Stage of : Antepartum Labor Evaluation Frequency: X1 IN ONE HOUR Monitor Mode: External Duration (sec)2399: 60 Quality: Mild Resting Tone [place]: Relaxed Heart Rate FHR Baseline Rate: 125 Monitor Mode: External US Variability: Moderate 6-25 bpm Accelerations: 15X15 Decelerations: None Category: Category I Datetime: 09/24/2018 23:20 Stage of : Antepartum Maternal Assessment Level of Consciousness: Fully Conscious DTR's/Clonus: DTRs 2+; No Clonus Headache: Denies Breath Sounds, Left: Clear and Equal Breath Sounds, Right: Clear and Equal Nausea/Vomiting: Denies RUQ Epigastric Pain: Denies Temperature Route: Oral Pain Assessment Pain Scale: 0 Pain Presence: None/Denies Pain Type: N/A Datetime: 09/24/2018 22:45 Stage of : Antepartum Labor Evaluation Frequency: X0 Monitor Mode: External Duration (sec)2399: X0 Pattern: Normal: <= 5 Contractions in 10 Minutes Resting Tone [place]: Relaxed Heart Rate FHR Baseline Rate: 135 Monitor Mode: External US Variability: Moderate 6-25 bpm Accelerations: 15X15 Decelerations: None Category: Category I Datetime: 09/24/2018 21:54 Stage of : Antepartum Maternal Assessment Level of Consciousness: Fully Conscious DTR's/Clonus: DTRs 2+; No Clonus Headache: Denies Breath Sounds, Left: Clear and Equal Breath Sounds, Right: Clear and Equal Nausea/Vomiting: Denies RUQ Epigastric Pain: Denies Pain Assessment Pain Scale: 0 Pain Presence: None/Denies Pain Type: N/A Datetime: 09/24/2018 21:45 Stage of : Antepartum Labor Evaluation Frequency: X1 Monitor Mode: External Duration (sec)2399: 140 Quality: Mild Resting Tone [place]: Relaxed Heart Rate FHR Baseline Rate: 125 Monitor Mode: External US Variability: Moderate 6-25 bpm Accelerations: 15X15 Decelerations: None Category: Category I Datetime: 09/24/2018 20:45 Stage of : Antepartum Labor Evaluation Frequency: x1 Monitor Mode: External Duration (sec)2399: 60 Quality: Mild Pattern: Normal: <= 5 Contractions in 10 Minutes Resting Tone [place]: Relaxed Heart Rate FHR Baseline Rate: 125 Monitor Mode: External US Variability: Moderate 6-25 bpm Accelerations: 15X15 Decelerations: None Category: Category I Datetime: 09/24/2018 19:33 Stage of : Antepartum Assessment Type: Ongoing Assessment Maternal Assessment Level of Consciousness: Fully Conscious DTR's/Clonus: DTRs 2+; No Clonus Headache: Denies Blurred Vision: No Respiratory Effort: Unlabored; Regular Rhythm; Equal Expansion Breath Sounds, Left: Clear and Equal Breath Sounds, Right: Clear and Equal Nausea/Vomiting: Denies RUQ Epigastric Pain: Denies Lower Extremities Edema: None Degree: None Upper Extremities Edema: None Degree: None Facial Edema: None Temperature Route: Oral Fall Risk Assessment History of Falling: (0) No Secondary Diagnosis: (0) No Ambulatory Aid: (0) Bedrest/Nurse Assist IV Therapy: (20) Yes Gait: (0) Normal/Bedrest/Immobile Mental Status: (0) Oriented to Own Ability Fall Score: 20 Fall Risk Score Definition: No Risk: No action required Pain Assessment Pain Scale: 2 Pain Presence: Constant Pain Type: Cramping Pain Location: Abdomen Pain Relief Measures: Comfort Measures Datetime: 09/24/2018 19:30 Stage of : Antepartum Labor Evaluation Frequency: X3 Monitor Mode: External Duration (sec)2399: 40-50 Quality: Mild Pattern: Normal: <= 5 Contractions in 10 Minutes Resting Tone [place]: Relaxed Heart Rate FHR Baseline Rate: 135 Monitor Mode: External US Variability: Moderate 6-25 bpm Accelerations: 15X15 Decelerations: None Category: Category I Datetime: 09/24/2018 18:30 Labor Evaluation Frequency: x1 Monitor Mode: External Duration (sec)2399: 60 Quality: Mild Pattern: Normal: <= 5 Contractions in 10 Minutes Heart Rate FHR Baseline Rate: 130 Monitor Mode: External US FHR Baseline Changes: No Baseline Change Variability: Moderate 6-25 bpm Accelerations: 15X15 Decelerations: None Pain Assessment Pain Scale: 0 Pain Presence: None/Denies Pain Type: N/A Datetime: 09/24/2018 17:30 Labor Evaluation Frequency: x4 with irritability Monitor Mode: External Duration (sec)2399: 60 Quality: Mild Pattern: Normal: <= 5 Contractions in 10 Minutes Heart Rate FHR Baseline Rate: 135 Monitor Mode: External US FHR Baseline Changes: No Baseline Change Variability: Moderate 6-25 bpm Accelerations: 15X15 Decelerations: None Pain Assessment Pain Scale: 0 Pain Presence: None/Denies Pain Type: N/A Datetime: 09/24/2018 16:30 Labor Evaluation Frequency: x4 with irritability Monitor Mode: External Duration (sec)2399: 60 Quality: Mild Pattern: Normal: <= 5 Contractions in 10 Minutes Heart Rate FHR Baseline Rate: 135 Monitor Mode: External US FHR Baseline Changes: No Baseline Change Variability: Moderate 6-25 bpm Accelerations: 15X15 Decelerations: None Pain Assessment Pain Scale: 0 Pain Presence: None/Denies Pain Type: N/A Datetime: 09/24/2018 15:49 Assessment Type: Admission Assessment Vaginal Bleeding: None Maternal Assessment Level of Consciousness: Fully Conscious DTR's/Clonus: DTRs 2+; No Clonus Headache: Denies Blurred Vision: No Respiratory Effort: Unlabored; Regular Rhythm; Equal Expansion Breath Sounds, Left: Clear and Equal Breath Sounds, Right: Clear and Equal Nausea/Vomiting: Denies RUQ Epigastric Pain: Denies Lower Extremities Edema: None Degree: None Upper Extremities Edema: None Degree: None Facial Edema: None Fall Risk Assessment History of Falling: (0) No Secondary Diagnosis: (0) No Ambulatory Aid: (0) Bedrest/Nurse Assist IV Therapy: (0) No Gait: (0) Normal/Bedrest/Immobile Mental Status: (0) Oriented to Own Ability Fall Score: 0 Fall Risk Score Definition: No Risk: No action required Labor Evaluation Frequency: 10 Duration (sec)2399: 60 Quality: Mild Pattern: Normal: <= 5 Contractions in 10 Minutes Resting Tone [place]: Relaxed Heart Rate FHR Baseline Rate: 135 Variability: Moderate 6-25 bpm Accelerations: 15X15 Decelerations: None Category: Category I Pain Assessment Pain Scale: 0 Pain Presence: None/Denies Pain Type: N/A Membrane Status: Intact Datetime: 09/24/2018 15:30 Labor Evaluation Frequency: x6 with irritabilities Monitor Mode: External Duration (sec)2399: 60 Quality: Mild Pattern: Normal: <= 5 Contractions in 10 Minutes Heart Rate FHR Baseline Rate: 135 Monitor Mode: External US FHR Baseline Changes: No Baseline Change Variability: Moderate 6-25 bpm Accelerations: 15X15 Decelerations: None Category: Category I Pain Assessment Pain Scale: 0 Pain Presence: None/Denies Pain Type: N/A Datetime: 09/24/2018 14:30 Stage of : Antepartum Monitor Mode: External Monitor Mode: External US Datetime: 09/24/2018 12:02 Fall Score: 0 Fall Risk Score Definition: No Risk: No action required Datetime: 09/24/2018 11:59 EGA: 33.3
--- NOTE | 2018-10-29 02:31 | TRIAGE ---
OB Triage Datetime Report Generated by CPN: 10/29/2018 02:31 Datetime: 10/29/2018 02:00 Frequency: 2-5 Monitor Mode: External Duration (sec)2399: 50-80 Quality: Mild Pattern: Normal: <= 5 Contractions in [address]: Relaxed FHR Baseline Rate: 135 Monitor Mode: External US Variability: Moderate 6-25 bpm Accelerations: 15X15 Decelerations: None Category: Category I Datetime: 10/28/2018 21:35 Fall Score: 20 Fall Risk Score Definition: No Risk: No action required Datetime: 10/28/2018 21:33 EGA: 38.2 Datetime: 10/28/2018 20:30 Frequency: 1-3 Monitor Mode: External Duration (sec)2399: 30-70 Quality: Mild Pattern: Normal: <= 5 Contractions in [address]: Relaxed FHR Baseline Rate: 135 Monitor Mode: External US Datetime: 10/28/2018 19:30 Stage of : OB Triage Frequency: 1-3 Monitor Mode: External Duration (sec)2399: 50-70 Quality: Mild Pattern: Normal: <= 5 Contractions in [address]: Relaxed FHR Baseline Rate: 135 Monitor Mode: External US Variability: Moderate 6-25 bpm Accelerations: 15X15 Decelerations: None Category: Category I
[2018-10-29] MEDS: LACTATED RINGER'S 1,000 ML IV SCH ×3 (06:58→18:03)
[2018-10-29] MEDS ORDERED: OXYTOCIN 30 UNITS/LR 500 ML IV SCH ×2 (07:00→23:28)
--- NOTE | 2018-10-29 13:30 | CONS ---
DATE OF ADMISSION: 10/28/2018 DATE OF CONSULTATION: 10/29/2018 HISTORY OF PRESENT ILLNESS: The patient is currently in labor, 3 cm, 60%, -2, 38 weeks and 3 days. The question is whether delivery should be continued and the answer is yes. Dictated By: YOHANA BILLINGSLEY/SONIA Conf#: [id number] DID#: [id number]
--- NOTE | 2018-10-29 17:22 | QN ---
Documentation Comment patient seen and evaluated no complaints vs stable afebrile ab gravid nt extremity no edema no calf tenderness ve 4/80/-2 arom clear fhr cat 1 toco regular a/ iup at term in labor currently on Pitocin for augmentation p/ anticipate vaginal delivery DAVID MONGE MD October 29, 2018 17:22
--- NOTE | 2018-10-29 18:27 | PREAC ---
Date/Time of Note Date/Time of Note DATE: 10/29/18 TIME: 18:26 Anesthesia Eval and Record Evaluation Time Pre-Procedure Interview DATE: 10/29/18 TIME: 18:26 Age 23 Sex female NPO: 8 hrs Preoperative diagnosis IUP Planned procedure L&D Epidural Past Medical History Past Medical History: None Surgery & Anesthesia Issues No known issue Meds Anticoagulation: No Beta Veronica within 24 hr: No Reason Beta Veronica not given: Pt. not on B-Veronica Reported Medications Vit No.130/Iron/FA ( Tablet) 1 Each Tablet, 1 EACH PO 09/24/18 Current Medications Lactated Ringer's 1,000 ml @ 125 mls/hr Q8H IV Last administered on 10/29/18at 18:03; Admin Dose 125 MLS/HR; Start 10/28/18 at 20:27 Butorphanol Tartrate (Stadol) 2 mg Q2H PRN IV .PAIN SCALE 6-10 Last administered on 10/29/18at 18:02; Admin Dose 2 MG; Start 10/28/18 at 20:30 Lidocaine (Xylocaine 1% (Mpf)) 30 ml ONCE PRN INJ .EPISIOTOMY; Start 10/28/18 at 20:30 Oxytocin/Lactated Ringer's 500 ml @ 500 mls/hr ONCE POST IV ; Start 10/28/18 at 20:30 Oxytocin/Lactated Ringer's 500 ml @ 125 mls/hr POST IV ; Start 10/28/18 at 20:30 Ibuprofen (Motrin) 600 mg ONCE PRN PO .PAIN 1-5; Start 10/28/18 at 20:30 Oxytocin/Lactated Ringer's 500 ml @ 0 mls/hr ONCE PRN IV .VAGINAL BLEEDING; Start 10/28/18 at 20:30 Methylergonovine Maleate (Methergine) 0.2 mg ONCE PRN IM .VAGINAL BLEEDING; Start 10/28/18 at 20:30 Carboprost Tromethamine (Hemabate) 250 mcg ONCE PRN IM .VAGINAL BLEEDING; Start 10/28/18 at 20:30 Misoprostol (Cytotec) 1,000 mcg ONCE PRN [place] .VAGINAL BLEEDING; Start 10/28/18 at 20:30 Cephalexin (Keflex) 500 mg Q6 PO Last administered on 10/29/18at 12:09; Admin Dose 500 MG; Start 10/29/18 at 00:00 Oxytocin/Lactated Ringer's 500 ml @ 0 mls/hr FOR AUGMENTATION IV Last administered on 10/29/18at 08:31; Admin Dose 1 MLS/HR; Start 10/29/18 at 07:00 Meds reviewed: Yes Allergies Coded Allergies: No Known Allergy (Unverified , 09/24/18) Allergies Reviewed: Yes Labs/Studies Labs Reviewed: Reviewed by anesthesiologist Result Diagram: 10/28/182114 Laboratory Tests 10/28/18 21:15 Blood Bank Test 10/28/18 21:15 Antibody Screen NEGATIVE Blood Type O POSITIVE Rh Immune Globulin Candidate NO test: Positive Studies: ECG Pre-procedure Exam Last vitals Vital Signs Date Temp Pulse Resp B/P (MAP) Pulse Ox O2 O2 Flow FiO2 Time Delivery Rate 10/28/18 98.0 18 18 109/62 Room Air 21:26 (78) Airway: Adequate mouth opening, Adequate thyromental dist Mallampati: Mallampati II Teeth: Normal Lung: Normal Heart: Normal ASA Physical Status ASA physical status: 2 Emergency: None Planned Anesthetic Neuraxial: Epidural Planned Pain Management Epidural Pre-operative Attestations Prior to commencing anesthesia and surgery, the patient was re-evaluated, there was verification of: *The patient's identity *The results of appropriate recent lab work and preoperative vital signs *The above evaluation not changing prior to induction *Anesthetic plan, risk benefits, alternative and complications discussed with patient/family; questions answered; patient/family understands, accepts and wishes to proceed. JAZMIN MORAN MD October 29, 2018 18:27
[2018-10-29] MEDS ORDERED: FENTAnyl 2MCG/ML-ROPIV 0.2% 100 ML ONE (18:29)
[2018-10-29] MEDS ORDERED: DIPHENHYDRAMINE 50 MG INJ IV PRN (18:30)
[2018-10-29] MEDS ORDERED: FENTAnyl 2MCG/ML-ROPIV 0.2% 100 ML BAG EPI SCH (18:30)
[2018-10-29] MEDS ORDERED: ONDANSETRON 4 MG INJ IV PRN ×2 (18:30→23:30)
[2018-10-29] MEDS ORDERED: NALOXONE (0.4 MG/ML) INJ IV PRN (18:30)
[2018-10-29] MEDS ORDERED: MINERAL OIL LIGHT 10 ML VIAL TOP ONE (19:30)
--- NOTE | 2018-10-29 23:28 | LDN ---
Date/Time of Note Date/Time of Note DATE: 10/29/18 TIME: 23:25 Delivery Summary Weeks of Gestation 38 Placenta Delivered: Spontaneously Meconium: none Episiotomy: No Perineal laceration: 2 (left labia minora laceration repair with 3-0 chromic) Anesthesia type: Epidural Estimated blood loss: 200 Sponge & Needle done & correct: Yes All needle counts correct: Yes Any foreign bodies felt in the: No Delivery Information Sex Infant Sex: female Apgars 1 Minute: 8 5 Minute: 9 Suctioning Nose & mouth suctioned at [place]: No Delee suction performed: No Umbilical Cord Umbilical cord with: 3 Vessels Cord presentations: no nuchal cord Cord Blood was obtained: Yes DAVID MONGE MD October 29, 2018 23:28
[2018-10-29] MEDS ORDERED: ACETAMINOPHEN 325 MG TAB PO PRN (23:30)
[2018-10-29] MEDS ORDERED: MISOPROSTOL 200 MCG TAB PR PRN (23:30)
[2018-10-29] MEDS ORDERED: LANOLIN HPA 1 PKT TOP PRN (23:30)
[2018-10-29] MEDS ORDERED: OXYTOCIN 30 UNITS/LR 500 ML IV PRN (23:30)
[2018-10-29] MEDS ORDERED: NACL 0.9% 3 ML SYG IV SCH (23:30)
[2018-10-29] MEDS ORDERED: CARBOPROST 250 MCG INJ IM PRN (23:30)
[2018-10-29] MEDS ORDERED: WITCH HAZEL/GLYCERIN PAD PR PRN (23:30)
[2018-10-29] MEDS ORDERED: BENZOCAINE 20% 56 ML SPRAY TOP PRN (23:30)
[2018-10-29] MEDS ORDERED: OXYCODONE/ASPIRIN (4.88/325) TAB PO PRN ×2 (23:30)
[2018-10-29] MEDS ORDERED: METHYLERGONOVINE 0.2 MG INJ IM PRN (23:30)
[2018-10-30 00:15] VITALS: BP 122/67; PULSE 70; RESP 18
[2018-10-30] MEDS: IBUPROFEN 600 MG TAB PO SCH ×5 (00:29→23:45)
[2018-10-30 03:59] VITALS: BP 104/54; PULSE 82; RESP 18
[2018-10-30 08:00] VITALS: BP 97/60; PULSE 89; RESP 18
[2018-10-30] MEDS: SENNA/DOCUSATE NA (8.6MG/50MG) TAB PO SCH ×2 (08:45→23:44)
--- NOTE | 2018-10-30 11:40 | PD.PPDC ---
PERSONAL LINES SALES EXECUTIVE Discharge Instruction Condition [id number] Patient Condition: [id number] Good Diet [id number] Diet: Vwshw0p Resume Regular Diet Activity/Restrictions [id number] Activity: Kcenf7w Normal Activity May Shower [id number] Restrictions: [id number] No Exercising No Lifting No Driving No Sexual Activity Nothing in the Vagina No [place] No Tampons, douche Follow-up Follow-up with Physician: 3, Week/Weeks Return to clinic for [id number] EDGE FINISHER Instructions: Hschy2q Fever greater than 101 Chills Worsening abdominal pain Excessive Vaginal Bleeding More than 2 pads per hour Unable to tolerate diet [id number] OB Instructions: [id number] Breast Tenderness Depression Blurried Vision Headache [id number] Surgical Instructions: Jubcx0l Incisional Drainage Incisional Redness DAVID MONGE MD October 30, 2018 11:40
--- NOTE | 2018-10-30 11:41 | DS ---
Date/Time of Note Date/Time of Note DATE: 10/30/18 TIME: 11:40 Obstetrical Discharge Record Final Diagnosis Final Diagnosis: Term delivered Vaginal Delivery Obstetrical Delivery: Spontaneous, Laceration, Repaired Condition on Discharge Physical Assessment Last Vitals: stable afebrile Voiding: Yes Bowel Movement: Yes Breast: Soft, non-tender, Filling Fundus: Firm Abdomen and Incision: soft nt Calf Tenderness: No Patient Condition: Fair DAVID MONGE MD October 30, 2018 11:41
[2018-10-30 14:58] VITALS: BP 107/55; PULSE 88; RESP 20
[2018-10-30 16:00] VITALS: BP 105/58; PULSE 85; RESP 19
[2018-10-30 19:30] VITALS: BP 105/65; PULSE 73; RESP 18
[2018-10-31 04:04] VITALS: BP 105/66; PULSE 58; RESP 18
[2018-10-31] MEDS: IBUPROFEN 600 MG TAB PO SCH ×2 (05:37→12:47)
[2018-10-31 08:00] VITALS: BP 109/57; PULSE 64; RESP 17
[2018-10-31] MEDS: SENNA/DOCUSATE NA (8.6MG/50MG) TAB PO SCH (08:32)
[2018-10-31] MEDS ORDERED: MEASLES,MUMPS,RUBELLA VACCINE INJ SC* ONE (09:00)
--- NOTE | 2018-10-31 10:42 | PAC ---
Date/Time of Note Date/Time of Note DATE: 10/31/18 TIME: 10:41 Post-Anesthesia Notes Post-Anesthesia Note Last documented vital signs Vital Signs Date Temp Pulse Resp B/P (MAP) Pulse Ox O2 O2 Flow FiO2 Time Delivery Rate 10/31/18 98.4 64 17 109/57 Room Air 08:00 (74) 10/30/18 98 14:58 Activity: WNL Respiratory function: WNL Cardiovascular function: WNL Mental status: Baseline Pain reasonably controlled: Yes Hydration appropriate: Yes Nausea/Vomiting absent: Yes Comments BP:132/67, P:84, Spo2:100%, T:98,7 JAZMIN MORAN MD October 31, 2018 10:42
--- NOTE | 2018-11-01 15:19 | DELSUM ---
Delivery Summary A-C Datetime Report Generated by CPN: 11/01/2018 15:19 DELIVERY PERSONNEL Tack Maker: Whitehead, Tabitha MATERNAL INFORMATION Delivery Anesthesia: Epidural Medications in Delivery: 30 UNIT PITOCIN Delivery QBL (ml): 200 Placenta Cultured: No Maternal Complications: Other Other Maternal Complications: HEART MURMUR LABOR SUMMARY EDC: 11/09/2018 00:00 No. Babies in Womb: 1 Attempted: No Labor Anesthesia: Epidural LABOR INFORMATION Reason for Induction: Not Applicable Onset of Labor: 10/28/2018 23:00 Complete Dilatation: 10/29/2018 20:08 Oxytocin: Augmentation Group B Beta Strep: Negative Antibiotics # of Doses: 5 Antibiotics Time of Last Dose: 10/29/2018 19:02 Steroids Given: None Reason Steroids Not Administered: Not Applicable MEMBRANES Membranes Rupture Method: Artificial Rupture of Membranes: 10/29/2018 16:52 Length of Rupture (hr): 5.45 Amniotic Fluid Color: Clear Amniotic Fluid Amount: Small Amniotic Fluid Odor: Normal STAGES OF LABOR Stage 1 hr: 21 Stage 1 min: 8 Stage 2 hr: 2 Stage 2 min: 11 Stage 3 hr: 0 Stage 3 min: 1 Total Time in Labor hr: 23 Total Time in Labor min: 20 VAGINAL DELIVERY Episiotomy: None Laceration Extension: Second Degree Laceration Type: Perineal Other Laceration: L LABIAL LACERATION Laceration Repair: Yes Initial Vag Sponge Count: 10 Final Vag Sponge Count: 10 Initial Vag Sharps Count: 1 Final Vag Sharps Count: 4 Sponge Count Correct: Yes; Vaginal Sweep Performed Sharps Count Correct: Yes BABY A INFORMATION Delivery Date/Time: 10/29/2018 22:19 Method of Delivery: Vaginal Born in Route : No : N/A Forceps: N/A Vacuum Extraction: N/A Shoulder Dystocia : N/A SHOULDER DYSTOCIA BABY A Delivery Date/Time: 10/29/2018 22:19 PRESENTATION/POSITION BABY A Presentation: Cephalic Cephalic Presentation: Vertex Vertex Position: Left Occipital Anterior Breech Presentation: N/A PLACENTA INFORMATION BABY A Placenta Delivery Time : 10/29/2018 22:20 Placenta Method of Delivery: Spontaneous Placenta Status: Delivered SCORES BABY A Heart Rate 1 min: >100 bpm Resp Effort 1 min: Good Cry Reflex Irritability 1 min: Cough/Sneeze/Pulls Away Muscle Tone 1 min: Active Motion Color 1 min: Blue/Pale Resuscitation Effort 1 min: Tactile Stimulation SCORE 1 MIN: 8 Heart Rate 5 min: >100 bpm Resp Effort 5 min: Good Cry Reflex Irritability 5 min: Cough/Sneeze/Pulls Away Muscle Tone 5 min: Active Motion Color 5 min: Body [place], Extremit Blue Resuscitation Effort 5 min: Tactile Stimulation SCORE 5 MIN: 9 INFANT INFORMATION BABY A Gestational Age at Delivery: 38.3 Gestational Status: Early Term- 37- 38.6 Weeks Infant Outcome : Liveborn Infant Condition : Stable Infant Sex: Female IDENTIFICATION/MEDS BABY A ID Band Number: [id number] ID Band Location: Right Leg; Left Arm Sensor Applied: Yes Sensor Number: [id number] Sensor Location : Cord Clamp Vitamin K Given : Not Given Erythromycin Given: Not Given WEIGHT/LENGTH BABY A Infant Birthweight (gm): 2745 Weight (lb): 6 Infant Weight (oz): 1 Length (in): 19.50 Length (cm): 49.53 CORD INFORMATION BABY A No. Cord Vessels: 3 Nuchal Cord : N/A Cord Blood Taken: Yes Suction: Mouth; Nose ASSESSMENT BABY A Infant Complications: None Physical Findings at Delivery: Within Normal Limits Respirations: Appears Normal [employer] Supervisor/ALS Called : No Care By: NICU/Krish [place] Transferred To: Remains with Mother
== END 2018-10-31 15:18 | disposition home or self-care (01) | DRG 807 ==
LOC: OBT 16:15 → L-D 16:20 → OBT 20:40 → L-D 20:40 → PP1 10-30 00:24
PROVIDERS: ADMIT Obstetrics & Gynecology; ATTEND Obstetrics & Gynecology
PROC: 10E0XZZ Delivery of Products of Conception, External Approach (ICD-10-PCS; principal; 2018-10-29)
PROC: 0KQM0ZZ Repair Perineum Muscle, Open Approach (ICD-10-PCS; 2018-10-29)
DX: O70.1 Second degree perineal laceration during delivery (principal); Z37.0 Single live birth; Z3A.38 38 weeks gestation of pregnancy
CPT/HCPCS: 62322; 76815; 76818; 81001; 85025; 85610; 85730; 86592; 86850; 86900; 86901; 87086; 87340; 99464; G0463; J0595; J0690; J2590; J3010; J7120